=== PATIENT | female | born 1935 | race Caucasian/White ===

== ENCOUNTER 2018-08-22 08:32 | Outpatient (CLI) | payer MEDICARE ==
--- NOTE | 2018-08-22 08:45 | RAD ---
FEXAM:Right femur 2 views HISTORY: Pain COMPARISON: None FINDINGS:There are marked arthritic changes of the knee. These films do not include the hip region. N o other bony findings. The patient has hip pain and dedicated films of this region are recommended. IMPRESSION:No acute findings.
--- NOTE | 2018-08-22 08:49 | RAD ---
2 VIEWS RIGHT HIP: Date: 08/22/18 HISTORY: 82-year-old female with history of right hip pain. FINDINGS: AP and frog-leg views of right hip obtained. Two views of the right hip demonstrate no evidence of right hip fractures, subluxations, or bony lesi ons. IMPRESSION: Normal 2 views right hip. POS: [facility]
== END 2018-08-22 08:33 | disposition home or self-care (01) ==
LOC: RAD-FRANK 08:32
PROVIDERS: ATTEND Nurse Practitioner Family
DX: M79.651 Pain in right thigh (principal)

== ENCOUNTER 2018-12-10 14:14 | Emergency (ER) | payer MEDICARE ==
--- NOTE | 2018-12-10 15:35 | CT ---
CT Facial Bones WO Con History: Fall. Laceration. Bruising. Comparison: None. Findings: Scleral banding around the left orbit. Left infraorbital soft tissue contusion. The orbital floors, orbital roofs, medial orbital hunter, lateral orbital hunter are intact. Frontal sinuses are clear. Mandible is intact. Maxilla is intact. Moderate degenerative changes of the temporomandibular joints. Impression: Left infraorbital soft tissue contusion without fracture of the face.
[2018-12-10 16:34] LABS: #Eosinphils 0.2 thou/uL (0.0-0.7); #Lymphocytes 1.1 thou/uL (1.20-3.40); #Monocytes 0.7 thou/uL (0.11-0.59); #Neutrophils 5.1 thou/uL (1.40-6.50); %Basophils 0.3 % (0.0-1.0); %Eosinophils 2.6 % (0.0-10.0); %Neutrophils 71.1 % (42.0-75.0); Hemoglobin 14.8 g/dL (12.0-16.0); Mean Corpuscular HGB CONC 32.7 g/dL (32.0-36.0); Mean Corpuscular Hemoglobin 31.4 pg (27.0-31.0); Mean Corpuscular Volume 96.2 fL (78.0-98.0); Platelet Count 133 thou/uL (130-400); RBC Distribution Width 12.4 % (11.5-14.5); Red Blood Cell (RBC) Count 4.72 mill/uL (4.20-5.40); White Blood Cell (WBC) Count 7.1 thou/uL (4.8-10.8)
--- NOTE | 2018-12-10 16:35 | CT ---
CT BRAIN WITHOUT CONTRAST: 12/10/18 HISTORY: 82-year-old female with fall, bruising to the left side of the face. FINDINGS/IMPRESSION: There are changes of cortical atrophy and chronic small vessel ischemic disease. The ventricular size is appropriate and the basilar cisterns are patent. No evidence of acute infarct, hemorrhage, midline shift, or abnormal extra-axial fluid collection is seen. The bony calvarium is intact. The visualized paranasal sinuses and mastoid air cells are well a erated. IMPRESSION: No acute process POS: [facility]
[2018-12-10] MEDS ORDERED: cefTRIAXone\\ROCEPHIN 1 GM VIAL ONE (16:44)
--- NOTE | 2018-12-10 16:53 | CT ---
CT CERVICAL SPINE WITH CORONAL AND SAGITTAL REFORMATIONS: 12/10/18 HISTORY: Fall, neck pain. FINDINGS/IMPRESSION: Multilevel degenerative changes are seen in the cervical spine. No acute fracture, subluxation, or fa cet malalignment is identified in the cervical spine. There is minimal anterior wedging of the superi or end plate of T1 vertebral body. There is a 15 mm low density lesion in the right lobe of the thyro id gland. POS: [facility]
[2018-12-10 17:02] LABS: ALT (SGPT) 14 U/L (8-55); AST (SGOT) 22 U/L (5-34); Albumin 4.6 g/dL (3.4-4.8); Alkaline Phosphatase 94 U/L (40-150); Anion Gap 16 mmol/L (10-20); BUN (Urea Nitrogen) 25 mg/dL (9.8-20.1); Bilirubin, Total 1.5 mg/dL (0.2-1.2); Calc. Creatinine Clearance 0 mL/min (70-130); Calcium 10.7 mg/dL (7.8-10.44); Carbon Dioxide 25 mmol/L (23-31); Chloride 100 mmol/L (98-107); Estimated GFR-MDRD 66; Globulin 3.3 g/dL (2.4-3.5); Glucose 111 mg/dL (83-110); Potassium 3.6 mmol/L (3.5-5.1); Protein, Total 7.9 g/dL (6.0-8.3); Sodium 137 mmol/L (136-145)
== END 2018-12-10 17:48 | disposition home or self-care (01) ==
LOC: ERS 14:14
DX: S00.83XA Contusion of other part of head, initial encounter (principal); L03.116 Cellulitis of left lower limb; I10 Essential (primary) hypertension; F03.90 Unspecified dementia, unspecified severity, without behavioral disturbance, psychotic disturbance, mood disturbance, and anxiety; Z79.899 Other long term (current) drug therapy; W19.XXXA Unspecified fall, initial encounter; Y92.009 Unspecified place in unspecified non-institutional (private) residence as the place of occurrence of the external cause
CPT/HCPCS: 70450; 70486; 72125; 80053; 85025; 96365; J0696

== ENCOUNTER 2019-10-29 11:56 | Observation (INO) | payer MEDICARE, MEDICAID ==
[2019-10-29 12:34] LABS: Bacteria/HPF 3+ HPF (None Seen); Bilirubin Negative (Negative); Blood, Urine Negative (Negative); Clarity Turbid (Clear); Glucose, Urine (Dipstick) Normal (Negative); Leukocyte 500 Leu/uL (Negative); Nitrite Negative (Negative); Protein, Urine (Dipstick) 30 mg/dL (Neg-Trace); Squamous Epithelial 0-3 HPF (0-3); Urobilinogen Normal mg/dL (Less than 2); WBC/HPF Greater than 50 HPF (0-3)
--- NOTE | 2019-10-29 12:44 | RAD ---
Exam: Chest one view HISTORY:Altered mental status. Comparison: 03/08/2005 FINDINGS: Cardiac silhouette: Normal Aorta: Unremarkable Pulmonary vessels: Normal. Calcified right paratracheal and bilateral hilar lymph nodes are noted Costophrenic angles: Clear LUNGS: No masses or consolidation. Chronic changes in the left lung base. Pneumothorax: None Osseous abnormalities: None IMPRESSION: No acute cardiopulmonary process.
[2019-10-29] MEDS ORDERED: Lidocaine 1% PF 5 ML VIAL ONE (13:02)
[2019-10-29] MEDS ORDERED: cefTRIAXone\\ROCEPHIN 1 GM VIAL ONE (13:02)
[2019-10-29 13:05] LABS: #Eosinphils 0.3 thou/uL (0.0-0.7); #Lymphocytes 0.8 thou/uL (1.20-3.40); #Monocytes 0.6 thou/uL (0.11-0.59); #Neutrophils 4.4 thou/uL (1.40-6.50); %Basophils 0.5 % (0.0-1.0); %Eosinophils 5.3 % (0.0-10.0); %Lymphocytes 13.3 % (21.0-51.0); %Monocytes 10.2 % (0.0-10.0); %Neutrophils 70.9 % (42.0-75.0); Mean Corpuscular HGB CONC 32.7 g/dL (32.0-36.0); Mean Corpuscular Hemoglobin 32.7 pg (27.0-31.0); Mean Corpuscular Volume 99.9 fL (78.0-98.0); Mean Platelet Volume 8.2 fL (7.4-10.4); Platelet Count 141 thou/uL (130-400); RBC Distribution Width 12.3 % (11.5-14.5); Red Blood Cell (RBC) Count 4.28 mill/uL (4.20-5.40); White Blood Cell (WBC) Count 6.2 thou/uL (4.8-10.8)
[2019-10-29 13:25] LABS: ALT (SGPT) 8 U/L (8-55); AST (SGOT) 17 U/L (5-34); Albumin 3.4 g/dL (3.4-4.8); Alkaline Phosphatase 88 U/L (40-110); Anion Gap 13 mmol/L (10-20); BUN (Urea Nitrogen) 49 mg/dL (9.8-20.1); Bilirubin, Total 0.3 mg/dL (0.2-1.2); Calc. Creatinine Clearance 0 mL/min (70-130); Calcium 9.2 mg/dL (7.8-10.44); Carbon Dioxide 27 mmol/L (23-31); Chloride 107 mmol/L (98-107); Estimated GFR-MDRD 55; Globulin 2.8 g/dL (2.4-3.5); Glucose 85 mg/dL (83-110); Potassium 4.4 mmol/L (3.5-5.1); Protein, Total 6.2 g/dL (6.0-8.3); Sodium 143 mmol/L (136-145)
[2019-10-29] MEDS ORDERED: Calcium Carbonate 500 MG ChewTAB PO PRN (15:29)
[2019-10-29 19:50] VITALS: BMI 30.6
--- NOTE | 2019-10-29 19:57 | HP ---
CHIEF COMPLAINT: Altered mentation. HISTORY OF PRESENT ILLNESS: The patient is an 83-year-old female, currently residing at [facility], was brought into the emergency room with altered mentation. Per [facility] record, the patient is alert, awake, oriented x2. She is wheelchair dependent. She is on regular diet. She has weak bowel and bladder incontinence. History is limited from the patient. Most of the information was obtained from the ER records. No family at the bedside. The patient was brought to the emergency room with altered mental status. The patient was found to be lethargic. She was confused. There was no fever, chills, cough, shortness of breath, wheezing, abdominal pain, or any other symptoms reported. In the emergency room, her initial vital signs showed temperature 97.4, respirations of 20, pulse rate of 76 with a blood pressure 125/98. Initial blood pressure when EMS picked her up was 81/60. Her workup in the emergency room was consistent with urinary tract infection. She received ceftriaxone. Her EKG showed sinus rhythm with nonspecific ST-T wave changes. PAST MEDICAL HISTORY: 1. Dementia. 2. Chronic urinary incontinence. 3. Hypertension. 4. Hypothyroidism. 5. Benign essential tremors. 6. Hyperlipidemia. 7. Depression. 8. Recurrent UTIs. PAST SURGICAL HISTORY: 1. Hysterectomy. 2. Cataract surgery. 3. Bladder surgery. 4. Left hand surgery for possible flexor tenosynovitis. ALLERGIES: NO KNOWN DRUG ALLERGIES. CURRENT HOME MEDICATIONS: We will obtain accurate list of medication from the [facility]. SOCIAL HISTORY: As discussed above. Her son is the primary decision maker. She has [id number] DNR. FAMILY HISTORY: Father had Alzheimer dementia. Mother had heart disease and colon cancer. REVIEW OF SYSTEMS: Cannot be obtained from the patient due to current mentation. PHYSICAL EXAMINATION: VITAL SIGNS: As discussed above. GENERAL: An 83-year-old female with altered mentation. HEENT: Head, atraumatic and normocephalic. Sclerae anicteric. Dry mucous membranes. No oral lesion. NECK: Supple. No JVD appreciated. No carotid bruit. LUNGS: Clear to auscultation bilaterally. No wheezing, rales, or rhonchi. HEART: S1 and S2 present. Regular rate and rhythm. No rubs or gallops. ABDOMEN: Soft. Bowel sounds present. No rebound or guarding. No costovertebral angle tenderness. EXTREMITIES: No edema or calf tenderness. NEUROLOGY AND PSYCHIATRY: Could not be reliably assessed due to current mentation. The patient is able to able to communicate to some extent. SKIN: Warm and dry. LYMPH NODES: No palpable lymph nodes in the neck. PERIPHERAL/VASCULAR: Radial pulses palpable bilaterally. MUSCULOSKELETAL: No joint swelling tenderness. LABORATORY FINDINGS: CBC showed WBC of 6.2 with hemoglobin 14, hematocrit 42.8, platelets 141. Chemistry showed sodium 143, potassium 4.4, chloride 107, bicarb 27, BUN 49, creatinine 0.97. Ammonia was 24. Urinalysis showed greater than 50 wbc's with 3+ bacteria. Leukocyte esterase positive, nitrite negative. IMAGING STUDIES: Chest x-ray by my review was negative for infiltrate or edema. EKG by my review as discussed above. IMPRESSION: 1. Toxic metabolic encephalopathy secondary to urinary tract infection with dehydration. 2. Alzheimer dementia. 3. Hypertension. 4. Benign essential tremors. 5. Hypothyroidism. Her TSH was normal last admission. 6. Macrocytosis with normal vitamin B12 and folic acid last admission. 7. Hypotension, probably secondary to dehydration. 8. Yk-shv-neduzktoxqn. 9. Anxiety. 10. Depression. 11. Physical deconditioning. 12. Chronic urinary and bladder incontinence. 13. History of recurrent urinary tract infections. PLAN: The patient will be monitored on the medical floor as 23-hour observation. We will verify home medications and start accordingly. We will continue ceftriaxone. We will await urine cultures. Her ammonia level was normal. Regular diet. Heparin for DVT prophylaxis. Gentle IV hydration. We will discuss the plan of care with the family. Job ID: [id number]
[2019-10-29] MEDS ORDERED: Trospium 20 MG TAB PO SCH (21:00)
[2019-10-29] MEDS: Sodium Chloride 0.9% 1,000 ML IV SCH (21:02)
[2019-10-29] MEDS: Heparin 5,000 UNITS/ML VIAL SC SCH (21:04)
[2019-10-29] MEDS: Metoprolol Tartrate 25 MG TAB PO SCH (21:05)
[2019-10-29] MEDS: Mirtazapine 15 MG TAB PO SCH (21:06)
[2019-10-29] MEDS: Donepezil HCl 10 MG TAB PO SCH (21:07)
[2019-10-29] MEDS: Melatonin 3 MG TAB PO SCH (21:07)
[2019-10-30 04:49] LABS: #Eosinphils 0.3 thou/uL (0.0-0.7); #Lymphocytes 0.7 thou/uL (1.20-3.40); #Monocytes 0.5 thou/uL (0.11-0.59); #Neutrophils 2.4 thou/uL (1.40-6.50); %Basophils 0.8 % (0.0-1.0); %Eosinophils 7.2 % (0.0-10.0); %Lymphocytes 17.6 % (21.0-51.0); %Monocytes 12.1 % (0.0-10.0); %Neutrophils 62.4 % (42.0-75.0); Hemoglobin 11.7 g/dL (12.0-16.0); Mean Corpuscular Hemoglobin 32.5 pg (27.0-31.0); Mean Corpuscular Volume 98.6 fL (78.0-98.0); Mean Platelet Volume 8.2 fL (7.4-10.4); Platelet Count 126 thou/uL (130-400); RBC Distribution Width 12.1 % (11.5-14.5); Red Blood Cell (RBC) Count 3.58 mill/uL (4.20-5.40); White Blood Cell (WBC) Count 3.8 thou/uL (4.8-10.8)
[2019-10-30 05:12] LABS: ALT (SGPT) Less than 7 U/L (8-55); AST (SGOT) 13 U/L (5-34); Alkaline Phosphatase 75 U/L (40-110); Anion Gap 9 mmol/L (10-20); BUN (Urea Nitrogen) 45 mg/dL (9.8-20.1); Bilirubin, Total 0.2 mg/dL (0.2-1.2); Calc. Creatinine Clearance 50 mL/min (70-130); Calcium 8.5 mg/dL (7.8-10.44); Carbon Dioxide 28 mmol/L (23-31); Chloride 110 mmol/L (98-107); Estimated GFR-MDRD 60; Globulin 2.2 g/dL (2.4-3.5); Glucose 106 mg/dL (83-110); Protein, Total 5.2 g/dL (6.0-8.3); Sodium 143 mmol/L (136-145)
[2019-10-30] MEDS ORDERED: cefTRIAXone\\ROCEPHIN 1 GM in Sodium Chloride 0.9% 100 ML IVPB SCH (09:00)
[2019-10-30] MEDS: Sodium Chloride 0.9% 1,000 ML IV SCH ×2 (10:15)
[2019-10-30] MEDS: Citalopram 20 MG TAB PO SCH (10:16)
[2019-10-30] MEDS: Metoprolol Tartrate 25 MG TAB PO SCH ×2 (10:16→20:09)
[2019-10-30] MEDS: Heparin 5,000 UNITS/ML VIAL SC SCH ×2 (10:17→20:05)
[2019-10-30] MEDS: Saccharomyces boulardii 250 MG CAP PO SCH (10:17)
[2019-10-30] MEDS: Acetaminophen 325 MG TAB PO PRN ×2 (10:19→20:09)
--- NOTE | 2019-10-30 13:31 | PDOC.HOSPP ---
- Subjective Encounter Date: 10/30/19 Encounter Time: 07:00 Subjective: Pt seen for followup re: toxic metabolic encephalopathy. Not answering questions, could not complete ROS. - Objective Vital Signs & Weight: Vital Signs (12 hours) Temp Pulse Resp BP BP Pulse Ox 10/30/19 12:00 98.2 F 75 16 102/67 97 10/30/19 08:00 98.0 F 67 18 136/95 H 136/95 H 95 10/30/19 04:35 97.5 F L 58 L 16 109/63 96 Weight Weight 142 lb I&O: 10/29/19 10/30/19 10/31/19 06:59 06:59 06:59 Intake Total 730 575 Output Total 400 Balance 330 575 Result Diagrams: 10/30/19 04:25 10/30/19 04:25 Additional Labs: Labs and MARs reviewed by me Hospitalist ROS - Review of Systems ROS unobtainable: due to mental status - Medication Medications: Active Medications Generic Name Dose Route Start Last Admin Trade Name Freq PRN Reason Stop Dose Admin Acetaminophen 650 mg 10/29/19 15:29 10/30/19 10:19 Tylenol PO 650 mg Q4H PRN Administration Headache/Fever/Mild Pain (1-3) Citalopram Hydrobromide 20 mg 10/30/19 09:00 10/30/19 10:16 Celexa PO 20 mg DAILY LUANNE Administration Divalproex Sodium 250 mg 10/30/19 09:00 10/30/19 10:16 Depakote Er PO 250 mg DAILY LUANNE Administration Donepezil HCl 10 mg 10/29/19 21:00 10/29/19 21:07 Aricept PO 10 mg HS LUANNE Administration Heparin Sodium (Porcine) 5,000 units 10/29/19 21:00 10/30/19 10:17 Heparin SC 5,000 units BID LUANNE Administration Sodium Chloride 1,000 mls @ 75 mls/hr 10/29/19 15:30 10/30/19 10:15 Normal Saline 0.9% IV 10/31/19 15:31 1,000 mls .[id number] LUANNE Administration Ceftriaxone Sodium 1 gm/ 100 mls @ 200 mls/hr 10/30/19 09:00 10/30/19 09:00 Sodium Chloride IVPB 100 mls DAILY LUANNE Administration Melatonin 3 mg 10/29/19 21:00 10/29/19 21:07 Melatonin PO 3 mg HS LUANNE Administration Metoprolol Tartrate 12.5 mg 10/29/19 21:00 10/30/19 10:16 Lopressor PO 12.5 mg BID LUANNE Administration Mirtazapine 7.5 mg 10/29/19 21:00 10/29/19 21:06 Remeron PO 7.5 mg HS LUANNE Administration Quetiapine Fumarate 50 mg 10/29/19 21:00 10/29/19 21:06 Seroquel PO 50 mg HS LUANNE Administration Saccharomyces Boulardii 250 mg 10/30/19 09:00 10/30/19 10:17 Florastor PO 250 mg DAILY LUANNE Administration Sodium Chloride 10 ml 10/29/19 15:29 10/29/19 21:00 Flush - Normal Saline IVF 10 ml PRN PRN Administration Saline Flush - Exam Eye: anicteric sclera ENT: normocephalic atraumatic, no oropharyngeal lesions, dry oral mucosa Neck: supple, symmetric, no JVD, no thyromegaly Heart: RRR, no gallops, no rubs, normal peripheral pulses Respiratory: CTAB, no wheezes, no rales, no ronchi, normal chest expansion Gastrointestinal: soft, non-tender, normal bowel sounds, no palpable masses (U) Extremities: no clubbing Psychiatric: lethargic Hosp A/P (1) Toxic metabolic encephalopathy Code(s): G92 - TOXIC ENCEPHALOPATHY Status: Acute (2) UTI (urinary tract infection) Status: Acute (3) Dementia Code(s): F03.90 - UNSPECIFIED DEMENTIA WITHOUT BEHAVIORAL DISTURBANCE Status: Chronic (4) HTN (hypertension) Code(s): I10 - ESSENTIAL (PRIMARY) HYPERTENSION Status: Chronic (5) Overactive bladder Code(s): N32.81 - OVERACTIVE BLADDER Status: Chronic - Plan Pseudomonas UTI, switch to meropenem, await sensitivities. Toxic metabolic encephalopathy secondary to UTI. Continue Aricept for dementia. Continue Celexa.
[2019-10-30] MEDS: MEROPENEM 1 GM/50 ML 1 GM in Premix Bag 1 BAG IVPB SCH ×2 (14:35→22:01)
[2019-10-30] MEDS: Donepezil HCl 10 MG TAB PO SCH (20:09)
[2019-10-30] MEDS: Melatonin 3 MG TAB PO SCH (20:09)
[2019-10-30] MEDS: Mirtazapine 15 MG TAB PO SCH (20:10)
[2019-10-31] MEDS: Sodium Chloride 0.9% 1,000 ML IV SCH (01:28)
[2019-10-31] MEDS: MEROPENEM 1 GM/50 ML 1 GM in Premix Bag 1 BAG IVPB SCH (05:23)
[2019-10-31] MEDS ORDERED: Ciprofloxacin 500 MG TAB PO SCH ×2 (07:30→20:00)
[2019-10-31 07:59] VITALS: BP 146/67; TEMP 98.2
[2019-10-31] MEDS: Metoprolol Tartrate 25 MG TAB PO SCH (11:18)
[2019-10-31] MEDS: Citalopram 20 MG TAB PO SCH (11:20)
[2019-10-31] MEDS: Saccharomyces boulardii 250 MG CAP PO SCH (11:20)
[2019-10-31] MEDS: Heparin 5,000 UNITS/ML VIAL SC SCH (11:20)
--- NOTE | 2019-11-01 03:29 | DIS ---
DATE OF ADMISSION: 10/29/2019 DATE OF DISCHARGE: 10/31/2019 PRIMARY CARE PROVIDER: Charlotte Mobley, ROBBIE-Yrn DISCHARGE DIAGNOSES: 1. Toxic metabolic encephalopathy. 2. Toxic metabolic encephalopathy secondary to urinary tract infection. 3. Dehydration. 4. Hypoalbuminemia. CONDITION OF PATIENT ON THE DAY OF DISCHARGE: Stable. I assessed Ms. Barros on the day of discharge. She denied any chest pain or shortness of breath. Vital signs are stable. S1 and S2 are heard, regular. Lungs are clear to auscultation bilaterally. HOSPITAL COURSE: Ms. Barros is a pleasant 83-year-old lady who was admitted to [facility] on October 29, 2019, for toxic metabolic encephalopathy secondary to urinary tract infection. She was initially treated with intravenous antibiotics. Urine cultures grew Pseudomonas aeruginosa that was sensitive to amikacin, cefepime, ceftazidime, ciprofloxacin, gentamicin, levofloxacin, meropenem, Zosyn, and tobramycin. She is being switched to oral ciprofloxacin prior to discharge. She improved clinically in terms of mentation. She has been started on chocolate MightyShakes 3 times a day. On October 29, she had sodium 143, potassium 4.0, creatinine 0.90, white count 3800, hemoglobin 11.7, and platelet count 126,000. She has been advised to stop the citalopram, Aricept, and Seroquel, and resume those medications after finishing course of ciprofloxacin. She has been started on ciprofloxacin 500 mg 2 times a day for 5 more days. No change was made to the rest of her pre-admission medications. Many thanks for allowing me to participate in your patient's care. Please feel free to contact me with any questions or concerns. POST-ACUTE CARE FOLLOWUP: With primary care provider in 3 days. DIET: Regular diet with supplements. ACTIVITY: As tolerated. DISCHARGE DESTINATION: [facility], from where the patient was admitted to the hospital. TIME SPENT: Total amount of time spent coordinating this discharge, 33 minutes. Job ID: [id number]
--- NOTE | 2019-11-08 10:56 | EKG ---
Test Reason : Blood Pressure : / mmHG Vent. Rate : 070 BPM Atrial Rate : 070 BPM P-R Int : 156 ms QRS Dur : 074 ms QT Int : 426 ms P-R-T Axes : 063 001 113 degrees QTc Int : 460 ms Normal sinus rhythm Abnormal ECG Confirmed by BIJAN HUBER DO ([id number]), editorial assistant GUERLINE CEDILLO ([id number]) on 11/08/2019 10:56:00 AM Referred By: Confirmed By:BIJAN HUBER DO
== END 2019-10-31 12:59 ==
LOC: ERS 11:56 → ONC 15:38
PROVIDERS: ADMIT Internal Medicine; ATTEND Internal Medicine
DX: N39.0 Urinary tract infection, site not specified (principal); B96.5 Pseudomonas (aeruginosa) (mallei) (pseudomallei) as the cause of diseases classified elsewhere; G92 Toxic encephalopathy; E86.0 Dehydration; G30.9 Alzheimer's disease, unspecified; F02.80 Dementia in other diseases classified elsewhere, unspecified severity, without behavioral disturbance, psychotic disturbance, mood disturbance, and anxiety; I10 Essential (primary) hypertension; G25.0 Essential tremor; E03.9 Hypothyroidism, unspecified; D75.89 Other specified diseases of blood and blood-forming organs; E78.5 Hyperlipidemia, unspecified; F41.9 Anxiety disorder, unspecified; F32.9 Major depressive disorder, single episode, unspecified; R32 Unspecified urinary incontinence; N32.81 Overactive bladder; Z66 Do not resuscitate; Z79.899 Other long term (current) drug therapy
CPT/HCPCS: 71045; 80053 ×2; 82140; 83735; 84484; 85025 ×2; 87077; 87086; 87186; 93005; 96361 ×3; 96365; 96366; 96372; 97139 ×2; 99285; G0378 ×4; 36415; 81003; 81015; J0696; J1644; J2001; J2185; J3490